=== PATIENT | female | born 1940 | race Caucasian/White ===

== ENCOUNTER 2018-07-18 07:04 | Day surgery (SDC) | payer MEDICARE, MEDICAID ==
[2018-07-17 12:07] LABS: BASOPHILS % (AUTO) 0.4 % (0-1); EOSINOPHILS # (AUTO) 0.1 X10'3 (0-0.9); EOSINOPHILS % (AUTO) 2.3 % (0-6); HEMATOCRIT 38.7 % (35.0-45.0); HEMOGLOBIN 12.7 g/dl (12.0-16.0); LYMPHOCYTES # (AUTO) 1.1 X10'3 (1.1-4.8); LYMPHOCYTES % (AUTO) 26.2 % (21-51); MEAN CORPUSCULAR HEMOGLOBIN 27.6 PG (27.0-31.0); MEAN CORPUSCULAR HGB CONC 32.8 % (33.0-36.5); MEAN CORPUSCULAR VOLUME 83.9 FL (78-98); MEAN PLATELET VOLUME 8.4 FL (7.4-10.4); MONOCYTES # (AUTO) 0.4 X10'3 (0-0.9); MONOCYTES % (AUTO) 9.4 % (2-12); NEUTROPHILS # (AUTO) 2.6 X10'3 (1.8-7.7); NEUTROPHILS % (AUTO) 61.7 % (42-75); PLATELET COUNT 193 X10'3 (140-440); RED BLOOD COUNT 4.62 X10'6 (4.20-5.60); WHITE BLOOD COUNT 4.2 X10'3 (4.5-11.0)
[2018-07-17 12:19] LABS: ALBUMIN 3.9 G/DL (3.4-5.0); ANION GAP 10 (8-16); BLOOD UREA NITROGEN 16 MG/DL (7-18); BUN/CREATININE RATIO 21.1 (6.6-38.0); CALCIUM 9.4 MG/DL (8.5-10.1); CHLORIDE 107 MMOL/L (99-107); CREATININE 0.76 MG/DL (0.40-0.90); GLUCOSE 103 MG/DL (70-104); INR 1.1 INR; PARTIAL THROMBOPLASTIN TIME 26 SECONDS (22-32); POTASSIUM 3.7 MMOL/L (3.5-5.1); SODIUM 146 MMOL/L (135-145); TOTAL CARBON DIOXIDE 28.7 MMOL/L (24-32); eGFR 73 ML/MIN
[2018-07-18] VITALS (13 sets, daily range): BP systolic 105–159; BP diastolic 59–99
[~2018-07-18] VITALS: Ht 154.9 cm; Wt 69.6 kg
[~2018-07-18 07:04] MED LIST: CLOP75TA35 PO; DOCU-106 PO; GABA-338 PO; HYDR12.522 PO; LOSA100T15 PO; METF-316 PO; SIMV20TA5 PO; TRAM50TA2 PO
[2018-07-18] MEDS ORDERED: diphenhydrAMINE 25mg capsule PO PRN (07:20)
[2018-07-18] MEDS ORDERED: normal saline 1000ml 1,000 ML IV SCH (07:20)
[2018-07-18] MEDS ORDERED: LORazepam 0.5 MG tablet PO PRN (07:20)
[2018-07-18] MEDS ORDERED: LEVO50TA8 PO (07:39)
[2018-07-18] MEDS ORDERED: ATOR40TA PO (07:39)
[2018-07-18] MEDS ORDERED: CHOL10002 PO (07:39)
[2018-07-18] MEDS ORDERED: nitroGLYCERIN-Tridil 50MG/D5W 250 ML IV ONE (09:12)
[2018-07-18] MEDS ORDERED: midazolam 2 mg/2 ml injection ONE (09:12)
[2018-07-18] MEDS ORDERED: fentaNYL/PF 50MCG/1 ML 2ML syringe ONE (09:13)
[2018-07-18] MEDS ORDERED: iohexol 350 MG/ML 50ML vial IV ONE (09:13)
[2018-07-18] MEDS ORDERED: iohexol 350MG/ML 100ml bottle IV ONE (09:13)
[2018-07-18] MEDS ORDERED: heparin 1,000unit/ml 10ml vial 10 ML ONE (09:13)
[2018-07-18] MEDS ORDERED: LIDOcaine 1% (10mg/ml)w/preservative injection 20ml MDV ONE (09:14)
== END 2018-07-18 18:10 | disposition home or self-care (01) ==
LOC: SSTAY O 07:04
PROVIDERS: ATTEND Internal Medicine Cardiovascular Disease
DX: I25.118 Atherosclerotic heart disease of native coronary artery with other forms of angina pectoris (principal); E78.5 Hyperlipidemia, unspecified; I10 Essential (primary) hypertension; E89.0 Postprocedural hypothyroidism; E11.42 Type 2 diabetes mellitus with diabetic polyneuropathy; M41.9 Scoliosis, unspecified; I25.2 Old myocardial infarction; Z86.73 Personal history of transient ischemic attack (TIA), and cerebral infarction without residual deficits; Z79.84 Long term (current) use of oral hypoglycemic drugs; Z79.891 Long term (current) use of opiate analgesic; Z79.899 Other long term (current) drug therapy; Z98.890 Other specified postprocedural states; Z82.3 Family history of stroke; Z82.49 Family history of ischemic heart disease and other diseases of the circulatory system
CPT/HCPCS: 36415; 80048; 82948; 85025; 85610; 85730; 93005; 93458; A6257; C1760; J1644; J2001; J2250; J3010; J7030; Q0163; Q9967; A4620; C1769; J3490